=== PATIENT | female | born 2000 | race African-American/Black ===

== ENCOUNTER 2025-03-22 18:05 | Emergency (ER) | payer SELFPAY ==
[~2025-03-22] VITALS: Ht 170.2 cm; Wt 124.0 kg
[2025-03-22 18:17] VITALS: BP 145/78; PULSE 64; RESP 18; TEMP 98.2; O2SAT 99
== END 2025-03-22 19:21 | disposition home or self-care (01) ==
LOC: EMS 18:10
DX: F41.9 Anxiety disorder, unspecified (principal); Z88.1 Allergy status to other antibiotic agents; Z90.49 Acquired absence of other specified parts of digestive tract; Z98.890 Other specified postprocedural states
CPT/HCPCS: 99283